=== PATIENT | male | born 1950 | race Caucasian/White ===

== ENCOUNTER 2022-10-21 12:42 | Emergency (ER) | payer MEDICARE ==
[~2022-10-21] VITALS: Ht 172.7 cm; Wt 97.7 kg
[2022-10-21 13:50] LABS: BASO # 0.1 10^3/uL (0.0-0.2); BASO % 0.7 % (0.0-1.0); EOS % 0.4 % (0.0-3.0); HEMATOCRIT 46.7 % (42.0-52.0); HEMOGLOBIN 15.9 g/dl (13.5-17.5); LYMPH # 1.8 10^3/uL (1.5-5.0); LYMPH % 16.6 % (24.0-44.0); MEAN CORPUSCULAR HEMOGLOBIN 31.9 pg (27.0-33.0); MEAN CORPUSCULAR VOLUME 93.8 fl (80.0-96.0); MONO # 0.6 10^3/uL (0.0-0.8); MONO % 5.9 % (2.0-8.0); NEUTROPHILS # 7.9 10^3/uL (1.5-8.5); NEUTROPHILS % 74.7 % (36.0-66.0); PLATELET COUNT, AUTOMATED 379 10^3/uL (150-450); RED BLOOD COUNT 4.98 10^6/uL (4.30-6.10); WHITE BLOOD COUNT 10.5 10^3/uL (4.0-10.0)
[2022-10-21 13:59] LABS: ERYTHROCYTE SEDIMENTATION RATE 53 mm/hr (0-20)
[2022-10-21] MEDS ORDERED: ISOVUE-370 76% 100ML VIAL As Ordered ONE (15:16)
[2022-10-21] MEDS ORDERED: cefTRIAXone SOD 1 GM in D5W MINI-BAG PLUS 50 ML IV ONE (17:15)
[2022-10-21] MEDS ORDERED: VANCOMYCIN HCL 2,000 MG in D5W 500 ML IV ONE (17:15)
[2022-10-21] MEDS ORDERED: VANCOMYCIN HCL 1,000 MG, VIAL MATE ADAPTER 1 EACH in D5W 250 ML IV ONE ×6 (17:30)
[2022-10-21 22:28] VITALS: BP 133/94; TEMP 98.4; O2SAT 95
== END 2022-10-21 22:39 | disposition short-term general hospital (02) ==
LOC: M ED 12:42
DX: M71.012 Abscess of bursa, left shoulder (principal); K21.9 Gastro-esophageal reflux disease without esophagitis; I10 Essential (primary) hypertension; F41.9 Anxiety disorder, unspecified; F12.10 Cannabis abuse, uncomplicated; G40.909 Epilepsy, unspecified, not intractable, without status epilepticus; Z86.79 Personal history of other diseases of the circulatory system
CPT/HCPCS: 73201; 80047; 85025; 85652; 86140; 87040; 87070; 87076; 96374; 96375; 99284; J0696; Q9967